=== PATIENT | female | born 1995 | race Caucasian/White ===

== ENCOUNTER 2017-01-31 21:03 | Emergency (ER) | payer BC ==
--- NOTE | 2017-01-31 21:36 | EDM.PDOC ---
ED HPI GENERAL MEDICAL PROBLEM - General Chief Complaint: Lower Extremity Injury/Pain Stated Complaint: ROLLED ANKLE Time Seen by Provider: 01/31/17 21:20 Source of Information: Reports: Patient History Limitations: Reports: No Limitations - History of Present Illness INITIAL COMMENTS - FREE TEXT/NARRATIVE: Patient is a 21-year-old female presents ED complaining of pain to the left foot. Patient states while running with her dogs in the yard rolled her ankle outward and felt a pop. Since then she's been having developed a walking. Pain is isolated to the lateral aspect of the foot. She has full range of motion of her ankle. No pain to her knee noted. She is able to ambulate with worsening pain. She did elevate the extremity and placed ice the affected area. She has not taken ibuprofen or Tylenol. No previous injury to the site noted. 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 Left Ankle Pain Score (Numeric/FACES): 7 - Related Data Allergies Allergy/AdvReac Type Severity Reaction Status Date / Time No Known Allergies Allergy Verified 01/31/17 21:13 Home Meds: Home Meds Montelukast [Singulair] 10 mg PO BEDTIME 01/31/17 [History] Norgestimate-Ethinyl Estradiol [Femynor 28 Tablet] 1 each PO DAILY 01/31/17 [ History] Past Medical History Respiratory History: Reports: Asthma Neurological History: Reports: Other (See Below) Other Neuro History: history of syncope - Past Surgical History HEENT Surgical History: Reports: Oral Surgery Social & Family History - Family History Family Medical History: Noncontributory - Tobacco Use Smoking Status *Q: Never Smoker - Caffeine Use Caffeine Use: Reports: Coffee - Recreational Drug Use Recreational Drug Use: No Review of Systems - Review of Systems Review Of Systems: ROS reveals no pertinent complaints other than HPI. ED EXAM, GENERAL - Physical Exam Exam: See Below Exam Limited By: No Limitations General Appearance: Alert, WD/WN, No Apparent Distress Ears: Hearing Grossly Normal Nose: Normal Inspection Throat/Mouth: Normal Voice, No Airway Compromise Neck: Normal Inspection, Supple Respiratory/Chest: No Respiratory Distress, No Accessory Muscle Use Cardiovascular: Normal Peripheral Pulses, Regular Rate, Rhythm Peripheral Pulses: 2+: Posterior Tibial (L), Dorsalis Pedis (L) Extremities: Normal Range of Motion (Of the left knee and ankle.), Other (On examination of the left foot patient has obvious swelling to the fifth and fourth metatarsal base. No swelling noted to the left ankle or lower leg. With palpation no pain to the proximal fibula, medial and lateral malleolus. No pain along the first second third metatarsal. Pain with palpation of the fourth and fifth metatarsal. No pain with palpation of the plantar aspect of the foot. No decrease in range of motion of the toes ankle.) Neurological: Alert, Oriented, CN II-XII Intact, Normal Cognition, No Motor/ Sensory Deficits Psychiatric: Normal Affect, Normal Mood Skin Exam: Warm, Dry, Intact, Normal Color Course - Vital Signs Last Recorded V/S: Last Vital Signs Temp 96.8 F 01/31/17 21:10 Pulse 81 01/31/17 21:10 Resp 18 01/31/17 21:10 BP 129/82 01/31/17 21:10 Pulse Ox 100 01/31/17 21:10 - Orders/Labs/Meds Orders: Active Orders 24 hr Category Date Time Status Foot Comp Min 3V Lt [CR] Stat Exams 01/31/17 21:28 Taken - Re-Assessments/Exams Free Text/Narrative Re-Assessment/Exam: Will obtain x-ray of the left foot. Patient refuses ibuprofen and Tylenol. X-ray of the foot reviewed. No acute bony abnormalities appreciated. Reviewed with Dr. Walker he agrees. Will have surgical shoe and Philip wrap applied. Patient refuses crutches. Discharge instructions as documented. Departure - Departure Time of Disposition: 22:08 Disposition: Home, Self-Care 01 Condition: Good Clinical Impression: Sprain of foot, left Qualifiers: Encounter type: initial encounter Qualified Code(s): S93.602A - Unspecified sprain of left foot, initial encounter - Discharge Information Instructions: Foot Sprain Referrals: Jeanette Campbell NP [Primary Care Provider] - Forms: ED Department Discharge Additional Instructions: As discussed elevate when able to reduce any swelling and pain. Apply ice to the affected area 4 times daily, 30 minutes in duration, do not place ice directly on the skin. Utilize Tylenol and ibuprofen in alternating fashion for pain. Refrain from any activities that cause worsening pain. If pain or swelling persist please follow up with PCP in the next 10-14 days. Return to the ED as needed for any new or worsening symptoms. - My Orders Last 24 Hours: My Active Orders 01/31/17 21:28 Foot Comp Min 3V Lt [CR] Stat - Assessment/Plan Last 24 Hours: My Active Orders 01/31/17 21:28 Foot Comp Min 3V Lt [CR] Stat
--- NOTE | 2017-02-01 06:57 | CR ---
Left foot: Three views of the left foot were obtained. Comparison: No previous study. Joint spaces are preserved. Small calcification is seen off the corner base of the distal phalanx of the first toe which is well-corticated and felt to be old and incidental. No acute fracture or other bony abnormality is appreciated. Impression: 1. Incidental finding. Nothing acute is appreciated on left foot study. Diagnostic code #2
== END 2017-01-31 22:23 | disposition home or self-care (01) ==
LOC: JD.ED 21:03
DX: S93.602A Unspecified sprain of left foot, initial encounter (principal); X50.1XXA Overexertion from prolonged static or awkward postures, initial encounter; Z79.899 Other long term (current) drug therapy; J45.909 Unspecified asthma, uncomplicated
CPT/HCPCS: 73630-26-LT; 73630-LT; 99283

== ENCOUNTER 2020-03-07 02:19 | Inpatient (IN) | payer BC ==
[2020-03-07] MEDS ORDERED: Ondansetron 4 MG/2 ML SDV IVPUSH PRN (03:40)
[2020-03-07] MEDS ORDERED: fentaNYL 100 MCG/2 ML SDV EPIDUR PRN (03:40)
[2020-03-07] MEDS ORDERED: ePHEDrine 50 MG/ML SDV IVPUSH PRN (03:40)
--- NOTE | 2020-03-07 03:46 | PCM.PREANE ---
Preanesthetic Assessment - Procedure Proposed Procedure: Epidural - Anesthesia/Transfusion/Family Hx Anesthesia History: Prior Anesthesia Without Reaction Family History of Anesthesia Reaction: No Transfusion History: No Prior Transfusion(s) Intubation History: Unknown - Review of Systems General: No Symptoms (frequent COVID testing due to work and all have been n egative.) Pulmonary: No Symptoms (Asthma: has not used albuterol inhaler in months/ induced by seasonal allergies and asthma) Cardiovascular: No Symptoms Gastrointestinal: No Symptoms Other: Reports: None, Sinus Problem - Physical Assessment NPO Status Date: 03/06/20 NPO Status Time: 21:00 Vital Signs: HR:76 B/P: 94/57 Sat: 99% Resp: 22 Temp: 98.3 Height: 1.65 m Weight: 96.615 kg ASA Class: 2 Mental Status: Alert & Oriented x3 Airway Class: Mallampati = 2 Dentition: Reports: Normal Dentition, Caries Thyro-Mental Finger Breadths: 3 Mouth Opening Finger Breadths: 3 ROM/Head Extension: Full Lungs: Clear to Auscultation, Normal Respiratory Effort Cardiovascular: Regular Rate, Regular Rhythm, No Murmurs - Lab Values: Awaiting lab results and Covid screen. - Allergies Allergies/Adverse Reactions: Allergies Allergy/AdvReac Type Severity Reaction Status Date / Time No Known Allergies Allergy Verified 01/31/17 21:13 - Anesthesia Plan Pre-Op Medication Ordered: None - Acknowledgements Anesthesia Type Planned: Epidural Pt an Appropriate Candidate for the Planned Anesthesia: Yes Alternatives and Risks of Anesthesia Discussed w Pt/Guardian: Yes Pt/Guardian Understands and Agrees with Anesthesia Plan: Yes PreAnesthesia Questionnaire Respiratory History: Reports: Asthma Neurological History: Reports: Other (See Below) Other Neuro History: history of syncope - Past Surgical History HEENT Surgical History: Reports: Oral Surgery - HOME MEDS Home Medications: Home Meds Montelukast [Singulair] 10 mg PO BEDTIME 01/31/17 [History] norgestimate-ethinyl estradioL [Femynor 28 Tablet] 1 each PO DAILY 01/31/17 [History]
[2020-03-07] MEDS ORDERED: Sodium Chloride 0.9% 10 ML Syringe FLUSH PRN (04:00)
[2020-03-07] MEDS ORDERED: Acetaminophen 325 MG Tab PO PRN (04:00)
[2020-03-07] MEDS ORDERED: Oxytocin/Lactated Ringers 10 UNIT/1,000 ML BAG IV SCH ×2 (04:00)
[2020-03-07] MEDS ORDERED: Nalbuphine 10 MG/1 ML Vial IVPUSH PRN (04:00)
[2020-03-07] MEDS ORDERED: Ampicillin 2 GM in Sodium Chloride 0.9% 100 ML IV ONE (04:00)
[2020-03-07] MEDS: Bupivacaine/fentaNYL/NS 100 ML Bag EPIDUR SCH ×2 (04:42→12:25)
[2020-03-07] MEDS: Lactated Ringers 1,000 ML IV SCH ×3 (04:46→10:03)
--- NOTE | 2020-03-07 07:45 | PCM.LDHP ---
L&D History of Present Illness - General Date of Service: 03/07/20 Admit Problem/Dx: Patient Status Order with Admit Dx/Problem 03/07/20 04:01 Patient Status [ADT] Routine Admission Diagnosis/Problem Admission Diagnosis/Problem 03/07/20 07:33 Fariha is a 24-year-old 1 para 0 white female who was admitted on the a.m. of 03/07/2020 at 39-3/7 weeks gestational age with an RONI of 03/11/2020 in active labor with change in cervix. Source of Information: Patient History Limitations: Reports: No Limitations - History of Present Illness Introduction:: Fariha is a 24-year-old 1 para 0 white female who was admitted on the a.m. of 03/07/2020 at 39-3/7 weeks gestational age with an RONI of 03/11/2020 in active labor with change in cervix. She is now 3+ centimeters, 90% effaced, -2, anterior, very soft. AROM has been performed and has resulted in clear amniotic fluid. heart tones are reassuring. Patient has received an epidural and is comfortable with epidural analgesia. 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 RONI 03/11/2020 was determined by a 6-0/7-week ultrasound done on 08/24/2019 and supported by 2 other ultrasounds done on 08/23/2019 and 10/26/2019. Patient is had normal onset of menses at age 12. Cycles q. 28 to 30 days and regular. Positive hCG on 07/01/2019 last menstrual period was 05/30/2019 which she reports to be fairly definite. Patient has had normal Pap smears. She denies any STIs in the past. course: Patient's first visit was at 6 weeks and 0 days with transvaginal ultrasound confirming a viable, garcia, intrauterine and supporting an RONI of 03/11/2020. She was seen on a regular basis throughout the . Her vital signs remained stable throughout the . She was a centering patient. Her weight increased from 166 up to 210 pounds for a 44 pound increase. Fundal height growth was appropriate for dates. She had her flu vaccination on 01/22/2020. She is group B strep positive based on urine culture done at the beginning of the . Tdap was given on 12/17/2019. She plans to breast-feed. She declined genetic testing. She did have exposure to COVID-19 but did not have any symptoms nor did she test positive. [place] depression screen score on 10/30/2019 was 2/30. Her immunization record includes flu shot on 01/22/2020, Tdap on 12/17/2019. She is rubella immune. Hepatitis B series was given in 1995. Meningococcal immunization was given in October 2012. Her last Td was February 10, 2016. Laboratory testing in shows her blood to be a positive with a negative antibody screen. First hemoglobin was 14.2 g/dL and platelets were 285,000 at that time. She is rubella immune. RPR is nonreactive. Urine culture showed group B strep. Hepatitis B surface antigen and HIV assays were both negative as were her chlamydia and gonorrhea tests. Second trimester labs showed a hemoglobin of 12.4 g/dL and platelets at 217,000. Her 1 hour glucose was 84. RPR done on 12/17/2019 was negative. Covid test on 09/26/2019 was negative. Group B strep her urine was positive but not read done in third trimester. Allergies: Seasonal allergies and cat dander. Medications: 1. Montelukast sodium 10 mg p.o. daily every night at bedtime 2. Ventolin HFA 108 mcg per action inhaler-used every 4-6 hours as needed 2. Probiotic caps 3. vitamins 4. Claritin 10 mg p.o. daily as needed for allergies 5. Calcium 600 mg p.o. daily 6. Docusate sodium 100 mg caps p.o. as needed for constipation. Past medical history: 1. Asthma which is seasonal allergy related 2. Mildly abnormal Pap smear with ASCUS changes 2018. HPV was negative and no dysplasia was noted. Past surgical history: 1. Oral surgery Family history: Paternal uncle with muscular dystrophy. Cystic fibrosis in his cousin on her dad's side a cousin with MS on paternal side. Mother is alive with high blood pressure and thyroid dysfunction. Father is alive and well. 2 brothers both alive and well. Maternal grandmother is at age 76 from colon cancer, diabetes complications and heart failure. Maternal grandfather is alive at age 85 but with dementia and history of heart surgery. Paternal grandmother is secondary to stomach cancer. Had a history of smoking. Paternal grandfather is secondary to esophageal cancer. History of smoking. No known family history of female cancers, bleeding or blood clotting disorder, anesthesia related problems or related issues. Social history: Patient is . is Isaak. 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 They live in [place], [place]. She does not use any significant amounts of alcohol, drugs or tobacco. Review of systems: Patient is reporting contractions on every 2 to 5-minute basis upon admission. Moderate in intensity and uncomfortable. Baby has been active. No loss of vaginal fluid, vaginal bleeding or increased mucus dischar ge. Skin: Negative Lungs: No infectious symptoms or shortness of breath Cardiovascular: No chest pain or exercise intolerance Breasts: No lumps, changes in size, pain, dimpling, discharge or axillary or supraclavicular concerns. GI: Negative : changes noted. Musculoskeletal: Negative Neurological: Negative Physical exam: In general the patient is well-developed, well-nourished, pleasant female of stated age in no acute distress. Clinic on 02/25/2020 her blood pressure was 118/70. Her fundal height was 38 cm. heart rate was 125. Her pregravid weight was 166. Height is 5 feet 5. Prepregnancy body mass index is 25.1. Skin is warm dry without lesions. HEENT, neck and back within normal limits. Lungs are clear with good breath sounds in all lung hanna. Cardiovascular exam shows regular and rhythm without murmurs. Breast exam done at first visit was unremarkable and is not repeated at this time. Abdomen is gravid with last fundal height at 38 cm. Baby in vertex presentation.. Genital per digital exam is as above. Patient is 3+ centimeters at this time. Extremities and neurological exam are grossly within normal limits. 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: Neurological History: Reports: Other (See Below) Other Neuro History: history of syncope - Infectious Disease History Infectious Disease History: Reports: None - Past Surgical History HEENT Surgical History: Reports: Oral Surgery Social & Family History - Family History Family Medical History: No Pertinent Family History - Caffeine Use Caffeine Use: Reports: Coffee H&P Review of Systems - Review of Systems: Review Of Systems: See Below L&D Exam - Exam Exam: See Below - Vital Signs Vital Signs: Last Vital Signs Temp Pulse Resp BP Pulse Ox 100 03/07/20 03:40 Weight: 96.615 kg - Patient Data Lab Results Last 24 hrs: Laboratory Results - last 24 hr 03/07/20 03/07/20 Range/Units 04:15 04:17 WBC 13.11 H (3.98-10.04) K/mm3 RBC 4.58 (3.98-5.22) M/mm3 Hgb 13.6 (11.2-15.7) gm/dl Hct 40.6 (34.1-44.9) % MCV 88.6 (79.4-94.8) fl MCH 29.7 (25.6-32.2) pg MCHC 33.5 (32.2-35.5) g/dl RDW Std Deviation 45.3 (36.4-46.3) fL Plt Count 223 (182-369) K/mm3 MPV 9.7 (9.4-12.3) fl SARS-CoV-2 RNA (HIGINIO) Negative (NEGATIVE) Result Diagrams: 03/07/20 04:17 Problem List Initiated/Reviewed/Updated: Yes Orders Last 24hrs: Active Orders 24 hr Category Date Time Status Patient Status [ADT] Routine ADT 03/07/20 04:01 Active Activity as Tolerated [RC] PFP Care 03/07/20 04:00 Active Communication Order [RC] ASDIRECTED Care 03/07/20 04:00 Active Heart Tones [RC] ASDIRECTED Care 03/07/20 04:01 Active Notify Provider [RC] ASDIRECTED Care 03/07/20 03:40 Active Notify Provider [RC] PFP Care 03/07/20 04:00 Active Notify Provider [RC] PRN Care 03/07/20 04:00 Active Oxygen Therapy [RC] ASDIRECTED Care 03/07/20 03:40 Active Peripheral IV Care [RC] . DIRECTED Care 03/07/20 04:01 Active Pulse Oximetry [RC] ASDIRECTED Care 03/07/20 03:40 Active Vital Signs [RC] PER UNIT ROUTINE Care 03/07/20 02:38 Active Vital Signs [RC] PER UNIT ROUTINE Care 03/07/20 04:00 Active Regular Diet [DIET] Diet 03/07/20 Breakfast Active RAPID PLASMA REAGIN,RPR [CHEM] Routine Lab 03/07/20 04:17 Received Acetaminophen [TylenoL] Med 03/07/20 04:00 Active 650 mg PO Q4H PRN Ampicillin 1 gm Med 03/07/20 08:00 Active Sodium Chloride 0.9% [Normal Saline] 100 ml IV Q4H Bupivacaine/fentaNYL/NS [fentaNYL/Bupivacaine/NS 2 MCG- Med 03/07/20 03:45 Act david 0.125% 100 ML] 100 ml EPIDUR ASDIRECTED Lactated Ringers [Ringers, Lactated] 1,000 ml Med 03/07/20 04:00 Active IV ASDIRECTED Nalbuphine [Nubain] Med 03/07/20 04:00 Active 10 mg IVPUSH Q2H PRN Ondansetron [Zofran] Med 03/07/20 03:40 Active 4 mg IVPUSH ONETIME PRN Oxytocin/Lactated Ringers [Pitocin in LR 10 Units/1,000 Med 03/07/20 04:00 Active ML] 10 unit in 1,000 ml IV .CONTINUOUS Oxytocin/Lactated Ringers [Pitocin in LR 10 Units/1,000 Med 03/07/20 04:00 Active ML] 10 unit in 1,000 ml IV TITRATE Sodium Chloride 0.9% [Saline Flush] Med 03/07/20 04:00 Active 10 ml FLUSH ASDIRECTED PRN ePHEDrine [ePHEDrine sulfate] Med 03/07/20 03:40 Active 5 mg IVPUSH ASDIRECTED PRN fentaNYL [Sublimaze] Med 03/07/20 03:40 Active 100 mcg EPIDUR Q3H PRN Electronic Heart Tones Ext w TOCO [WOMSER] Oth 03/07/20 04:00 Ordered Routine Electronic Heart Tones Internal [WOMSER] Per Unit Oth 03/07/20 04:00 Ordered Routine Peripheral IV Insertion Adult [OM.PC] Routine Oth 03/07/20 04:00 Ordered Resuscitation Status Routine Resus Stat 03/07/20 02:36 Ordered Medication Orders Acetaminophen (Tylenol) 650 mg PO Q4H PRN PRN Reason: Pain (Mild 1-3) and fever Ephedrine Sulfate (Ephedrine Sulfate) 5 mg IVPUSH ASDIRECTED PRN PRN Reason: Hypotension Fentanyl (Sublimaze) 100 mcg EPIDUR Q3H PRN PRN Reason: Pain Last Admin: 03/07/20 04:41 Dose: 100 mcg Documented by: BARTOLO Fentanyl/Bupivacaine HCl (Fentanyl/Bupivacaine/Ns 2 Mcg-0.125% 100 Ml) 100 ml EPIDUR ASDIRECTED ANKIT Last Admin: 03/07/20 04:42 Dose: 100 ml Documented by: BARTOLO Lactated Ringer's (Ringers, Lactated) 1,000 mls @ 100 mls/hr IV ASDIRECTED ANKIT Last Admin: 03/07/20 05:15 Dose: 100 mls/hr Documented by: Infusion: 03/07/20 05:15 Dose: 100 mls/hr Documented by: Admin: 03/07/20 04:46 Dose: 100 mls/hr Documented by: BARTOLO Ampicillin Sodium 1 gm/ Sodium (Chloride) 100 mls @ 200 mls/hr IV Q4H ANKIT Oxytocin/Lactated Ringer's (Pitocin In Lr 10 Units/1,000 Ml) 10 unit in 1,000 mls @ 12 mls/hr IV TITRATE ANKIT; Protocol Oxytocin/Lactated Ringer's (Pitocin In Lr 10 Units/1,000 Ml) 10 unit in 1,000 mls @ 500 mls/hr IV .CONTINUOUS ANKIT Nalbuphine HCl (Nubain) 10 mg IVPUSH Q2H PRN PRN Reason: Pain Ondansetron HCl (Zofran) 4 mg IVPUSH ONETIME PRN PRN Reason: Nausea/Vomiting Sodium Chloride (Saline Flush) 10 ml FLUSH ASDIRECTED PRN PRN Reason: Keep Vein Open Assessment/Plan Comment:: 1. 39-3/7-week intrauterine in a 1 para 0 with an RONI of 11/24/2020active laborcervical changereassuring heart tones. 2. Group B strep screen done. Prophylactic ampicillin per protocol started. 3. Patient plans to breast-feed. 4. Epidural placed and working well 5. Covid negative. 6. Patient is rubella immune. She has received her Tdap and influenza immunizations during this . Plan: 1. Anticipate normal spontaneous vaginal delivery 2. Group B strep prophylaxis per protocol 3. RPR and CBC have been done along with Covid testing. All are essentially normal. 4. Support breast-feeding decision. 5. Routine labor care.
[2020-03-07] MEDS: Ampicillin 1 GM in Sodium Chloride 0.9% 100 ML IV SCH ×3 (08:40→16:35)
[2020-03-07] MEDS ORDERED: Bupivacaine 0.25% 10 ML SDV ONE (12:00)
--- NOTE | 2020-03-07 17:59 | PCM.SN.2 ---
- Free Text/Narrative Note: Delivery note: Fariha is a 24-year-old 1 para 0 white female who was admitted on the a.m. of 03/07/2020 at 39-3/7 weeks gestational age with an RONI of 03/11/2020 in active labor with change in cervix. Started early in the a.m. on 03/07/2020. Patient was evaluated and found to be bette every 2 to 4 minutes upon admission. Moderate in intensity and very uncomfortable for the patient. She had intact membranes. heart tones were reassuring. Patient underwent artificial rupture of membranes to augment labor. She progressed steadily to complete cervical dilation. She had an epidural in place for labor analgesia. At 1852 hrs. on 03/07/2020 after approximately an hour and a half of pushing patient delivered a viable thousand 400 g (7 pounds 8 ounce) female infant named Delmis Guerrero in a direct occiput anterior position. The baby was placed on mom's abdomen and dried with warm blanket. Nose and mouth were bulb suctioned. The Pitocin started and increased to 500 cc an hour to facilitate increase in uterine tone and decrease likelihood of bleeding. Umbilical cord was allowed to pulsate for approximately 3 minutes, was clamped x2 and then cut by the patient herself. The umbilical cord had 3 vessels. Cord blood was obtained. A second-degree perineal laceration was noted. It was repaired in a routine fashion with 3-0 Monocryl suture using labor epidural analgesia for perineal laceration repair anesthesia. Patient tolerated this well. The placenta delivered in a [place] presentation at 1701 hrs. It appeared intact and complete and was discarded per patient desire. The patient plans to breast-feed. Estimated blood loss was 200 cc. Condition: Good.
[2020-03-07] MEDS ORDERED: Benzocaine/Menthol 20%-0.5% Spray 56 GM Canister TOP PRN (18:29)
[2020-03-07] MEDS ORDERED: Witch Hazel Medicated Pads 40/Jar TOP PRN (18:29)
[2020-03-07] MEDS: Ibuprofen 600 MG Tab PO PRN (19:45)
[2020-03-08] MEDS: Ibuprofen 600 MG Tab PO PRN ×5 (00:22→20:54)
[2020-03-08] MEDS: Docusate Sodium 100 MG Cap PO PRN ×2 (07:39→20:54)
[2020-03-08] MEDS: Prenatal Multivitamin with Calcium/Folic Acid/Iron Tab PO SCH (09:00)
--- NOTE | 2020-03-08 09:38 | PCM.SN.2 ---
- Free Text/Narrative Note: day 1 No heavy vaginal bleeding no cramping uterus involuting normally patient will probably go home tomorrow.
[2020-03-08] MEDS: Acetaminophen 325 MG Tab PO PRN ×2 (17:15→23:54)
--- NOTE | 2020-03-09 04:38 | PCM48HPAN ---
Post Anesthesia Note - EVALUATION WITHIN 48HRS OF ANESTHETIC Vital Signs in Normal Range: Yes Patient Participated in Evaluation: Yes Respiratory Function Stable: Yes Airway Patent: Yes Cardiovascular Function Stable: Yes Hydration Status Stable: Yes Pain Control Satisfactory: Yes Nausea and Vomiting Control Satisfactory: Yes Mental Status Recovered: Yes Vital Signs: Last Vital Signs Temp 37.0 C 03/08/20 15:00 Pulse 79 03/08/20 15:00 Resp 16 03/08/20 15:00 BP 116/71 03/08/20 15:00 Pulse Ox 99 03/08/20 15:00
--- NOTE | 2020-03-09 06:20 | PCM.DCSUM1 ---
Discharge Summary - Hospital Course Free Text/Narrative:: [facility] Provider Simple Note Patient Name: SEN SALAZAR Date of : [birth year] Patient Status: Inpatient Attending Provider: Shayne Pham Date: 03/07/20 17:55 Initialization Date: 03/07/20 17:55 - Free Text/Narrative Note: Delivery note: Sen is a 24-year-old 1 para 0 white female who was admitted on the a.m. of 03/07/2020 at 39-3/7 weeks gestational age with an RONI of 03/11/2020 in active labor with change in cervix. Started early in the a.m. on 03/07/2020. Patient was evaluated and found to be bette every 2 to 4 minutes upon admission. Moderate in intensity and very uncomfortable for the patient. She had intact membranes. heart tones were reassuring. Patient underwent artificial rupture of membranes to augment labor. She progressed steadily to complete cervical dilation. She had an epidural in place for labor analgesia. At 1852 hrs. on 03/07/2020 after approximately an hour and a half of pushing patient delivered a viable thousand 400 g (7 pounds 8 ounce) female named Delmis Guerrero in a direct occiput anterior position. The baby was placed on mom's abdomen and dried with warm blanket. Nose and mouth were bulb suctioned. The Pitocin started and increased to 500 cc an hour to facilitate increase in uterine tone and decrease likelihood of bleeding. Umbilical cord was allowed to pulsate for approximately 3 minutes, was clamped x2 and then cut by the patient herself. The umbilical cord had 3 vessels. Cord blood was obtained. A second-degree perineal laceration was noted. It was repaired in a routine fashion with 3-0 Monocryl suture using labor epidural analgesia for perineal laceration repair anesthesia. Patient tolerated this well. The placenta delivered in a Echols presentation at 1701 hrs. It appeared intact and complete and was discarded per patient desire. The patient plans to breast-feed. Estimated blood loss was 200 cc. Condition: Good. HPI Initial Comments: [facility] Provider Simple Note Patient Name: SEN SALAZAR Date of : [birth year] Patient Status: Inpatient Attending Provider: Shayne Pham F Date: 03/07/20 17:55 Initialization Date: 03/07/20 17:55 - Free Text/Narrative Note: Delivery note: Sen is a 24-year-old 1 para 0 white female who was admitted on the a.m. of 03/07/2020 at 39-3/7 weeks gestational age with an RONI of 03/11/2020 in active labor with change in cervix. Started early in the a.m. on 03/07/2020. Patient was evaluated and found to be bette every 2 to 4 minutes upon admission. Moderate in intensity and very uncomfortable for the patient. She had intact membranes. heart tones were reassuring. Patient underwent artificial rupture of membranes to augment labor. She progressed steadily to complete cervical dilation. She had an epidural in place for labor analgesia. At 1852 hrs. on 03/07/2020 after approximately an hour and a half of pushing patient delivered a viable thousand 400 g (7 pounds 8 ounce) female named Delmis Guerrero in a direct occiput anterior position. The baby was placed on mom's abdomen and dried with warm blanket. Nose and mouth were bulb suctioned. The Pitocin started and increased to 500 cc an hour to facilitate increase in uterine tone and decrease likelihood of bleeding. Umbilical cord was allowed to pulsate for approximately 3 minutes, was clamped x2 and then cut by the patient herself. The umbilical cord had 3 vessels. Cord blood was obtained. A second-degree perineal laceration was noted. It was repaired in a routine fashion with 3-0 Monocryl suture using labor epidural analgesia for perineal laceration repair anesthesia. Patient tolerated this well. The placenta delivered in a Echols presentation at 1701 hrs. It appeared intact and complete and was discarded per patient desire. The patient plans to breast-feed. Estimated blood loss was 200 cc. Condition: Good. Brief History: [facility] . Provider Simple Note. Patient Name: SEN SALAZAR [facility] Record Number: [id number]. Date of : [birth year]Patient Status: Inpatient. Attending Provider: Shayne Pham FAccount Number: [id number]. Date: 03/07/20 17:55Initialization Date: 03/07/20 17:55. - Free Text/Narrative. Note: Delivery note: Sen is a 24-year-old 1 para 0 white female who was admitted on the a.m. of 03/07/2020 at 39-3/7 weeks gestational age with an RONI of 03/11/2020 in active labor with change in cervix. Started early in the a.m. on 03/07/2020. Patient was evaluated and found to be bette every 2 to 4 minutes upon admission. Moderate in intensity and very uncomfortable for the patient. She had intact membranes. heart tones were reassuring. Patient underwent artificial rupture of membranes to augment labor. She progressed steadily to complete cervical dilation. She had an epidural in place for labor analgesia. At 1852 hrs. on 03/07/2020 after approximately an hour and a half of pushing patient delivered a viable thousand 400 g (7 pounds 8 ounce) female infant named Delmis Guerrero in a direct occiput anterior position. The baby was placed on mom's abdomen and dried with warm blanket. Nose and mouth were bulb suctioned. The Pitocin started and increased to 500 cc an hour to facilitate increase in uterine tone and decrease likelihood of bleeding. Umbilical cord was allowed to pulsate for approximately 3 minutes, was clamped x2 and then cut by the patient herself. The umbilical cord had 3 vessels. Cord blood was obtained. A second-degree perineal laceration was noted. It was repaired in a routine fashion with 3-0 Monocryl suture using labor epidural analgesia for perineal laceration repair anesthesia. Patient tolerated this well. The placenta delivered in a Echols presentation at 1701 hrs. It appeared intact and complete and was discarded per patient desire. The patient plans to breast-feed. Estimated blood loss was 200 cc. Condition: Good. Diagnosis: Stroke: No - Discharge Data Discharge Date: 03/09/20 Discharge Disposition: Home, Self-Care 01 Condition: Good - Referral to Home Health Primary Care Physician: Shayne Pham MD - Discharge Diagnosis/Problem(s) (1) Second degree perineal laceration, delivered, current hospitalization SNOMED Code(s): 418941391, 954341696 ICD Code: O70.1 - SECOND DEGREE PERINEAL LACERATION DURING DELIVERY Status: Acute Current Visit: Yes (2) 39 weeks gestation of SNOMED Code(s): 10756158 ICD Code: Z3A.39 - 39 WEEKS GESTATION OF Status: Acute Current Visit: Yes - Patient Summary/Data Complications: none Consults: none Hospital Course: uneventful - Patient Instructions Diet: Usual Diet as Tolerated Driving: Do Not Drive (x2 days) Showering/Bathing: May Shower Notify Provider of: Fever, Increased Pain, Swelling and Redness, Drainage, Nausea and/or Vomiting - Discharge Plan *PRESCRIPTION DRUG MONITORING PROGRAM REVIEWED*: Not Applicable *COPY OF PRESCRIPTION DRUG MONITORING REPORT IN PATIENT LILY: Not Applicable Home Medications: Home Meds Calcium Carbonate [Calcium] 600 mg PO DAILY 03/07/20 [History] Docusate Sodium [Colace] 100 mg PO DAILY 03/07/20 [History] Pnv No.95/Ferrous Fum/Folic AC [ Caplet] 1 tab PO DAILY 03/07/20 [History] Benzocaine/Menthol [Dermoplast Pain Relief [place]] 1 spray TOP ASDIRECTED PRN canister 03/09/20 [Rx] Docusate Sodium [Colace] 100 mg PO BID PRN cap 03/09/20 [Rx] Ibuprofen [Motrin] 600 mg PO Q6H PRN tablet 03/09/20 [Rx] witch Ju [Tucks] 1 pad TOP ASDIRECTED PRN pad 03/09/20 [Rx] - Discharge Summary/Plan Comment DC Time >30 min.: No - Patient Data Vitals - Most Recent: Last Vital Signs Temp 98.6 F 03/08/20 15:00 Pulse 79 03/08/20 15:00 Resp 16 03/08/20 15:00 BP 116/71 03/08/20 15:00 Pulse Ox 99 03/08/20 15:00 Weight - Most Recent: 213 lb I&O - Last 24 hours: Intake & Output 03/08/20 03/08/20 03/09/20 14:59 22:59 06:59 Intake Total 120 240 Balance 120 240 Med Orders - Current: Current Medications Acetaminophen (Tylenol) 650 mg PO Q4H PRN PRN Reason: mild pain or fever Last Admin: 03/08/20 23:54 Dose: 650 mg Documented by: Benzocaine/Menthol (Dermoplast Pain Relief [place]) 0 gm TOP ASDIRECTED PRN PRN Reason: Perineal Comfort Measure Docusate Sodium (Colace) 100 mg PO BID PRN PRN Reason: Constipation Last Admin: 03/08/20 20:54 Dose: 100 mg Documented by: Ibuprofen (Motrin) 600 mg PO Q4H PRN PRN Reason: Mild pain or fever Last Admin: 03/08/20 20:54 Dose: 600 mg Documented by: Prenat Multivit/Obion/Iron/Folic Ac ( Plus Iron) 1 each PO DAILY [facility] Last Admin: 03/08/20 09:00 Dose: 1 each [facility] TOP ASDIRECTED PRN PRN Reason: Perineal Comfort Measure Discontinued Medications Acetaminophen (Tylenol) 650 mg PO Q4H PRN PRN Reason: Pain (Mild 1-3) and fever Bupivacaine HCl (Sensorcaine-Mpf 0.25%) 10 ml .ROUTE .STK-MED ONE Stop: 03/07/20 12:01 Ephedrine Sulfate (Ephedrine Sulfate) 5 mg IVPUSH ASDIRECTED PRN PRN Reason: Hypotension Fentanyl (Sublimaze) 100 mcg EPIDUR Q3H PRN PRN Reason: Pain Last Admin: 03/07/20 04:41 Dose: 100 mcg Documented by: Fentanyl/Bupivacaine HCl (Fentanyl/Bupivacaine/Ns 2 Mcg-0.125% 100 Ml) 100 ml EPIDUR ASDIRECTED [facility] Last Admin: 03/07/20 12:25 Dose: 100 ml Documented by: Lactated Ringer's (Ringers, Lactated) 1,000 mls @ 100 mls/hr IV ASDIRECTED [facility] Last Admin: 03/07/20 10:03 Dose: 100 mls/hr Documented by: Ampicillin Sodium 2 gm/ Sodium (Chloride) 100 mls @ 200 mls/hr IV ONETIME ONE Stop: 03/07/20 04:29 Last Admin: 03/07/20 04:27 Dose: 200 mls/hr Documented by: Ampicillin Sodium 1 gm/ Sodium (Chloride) 100 mls @ 200 mls/hr IV Q4H [facility] Last Admin: 03/07/20 16:35 Dose: 200 mls/hr Documented by: Oxytocin/Lactated Ringer's (Pitocin In Lr 10 Units/1,000 Ml) 10 unit in 1,000 mls @ 12 mls/hr IV TITRATE [facility]; Protocol Last Titration: 03/07/20 16:55 Dose: 83.33 munits/min, 500 mls/hr Documented by: Oxytocin/Lactated Ringer's (Pitocin In Lr 10 Units/1,000 Ml) 10 unit in 1,000 mls @ 500 mls/hr IV .CONTINUOUS ANKIT Miscellaneous Medication (Phenylephrine 1 Mg/10 Ml-Ns) 0 mg IVPUSH ONETIME ONE Stop: 03/07/20 03:41 Last Admin: 03/07/20 07:41 Dose: Not Given Documented by: Nalbuphine HCl (Nubain) 10 mg IVPUSH Q2H PRN PRN Reason: Pain Ondansetron HCl (Zofran) 4 mg IVPUSH ONETIME PRN PRN Reason: Nausea/Vomiting Sodium Chloride (Saline Flush) 10 ml FLUSH ASDIRECTED PRN PRN Reason: Keep Vein Open
[2020-03-09] MEDS: Ibuprofen 600 MG Tab PO PRN (06:57)
[2020-03-09] MEDS: Docusate Sodium 100 MG Cap PO PRN (07:57)
[2020-03-09] MEDS: Prenatal Multivitamin with Calcium/Folic Acid/Iron Tab PO SCH ×2 (07:58→12:20)
== END 2020-03-09 11:15 | disposition home or self-care (01) | DRG 560 ==
LOC: JD.OBCHECK 02:19 → JD.OB 02:26 → JD.OBCHECK 04:00 → JD.OB 04:00 → OBSVTOIN 16:52 → JD.OB 16:53
PROVIDERS: ADMIT Obstetrics & Gynecology; ATTEND Obstetrics & Gynecology
PROC: 10E0XZZ Delivery of Products of Conception, External Approach (ICD-10-PCS; principal; 2020-03-07)
PROC: 10907ZC Drainage of Amniotic Fluid, Therapeutic from Products of Conception, Via Natural or Artificial Opening (ICD-10-PCS; 2020-03-07)
PROC: 0KQM0ZZ Repair Perineum Muscle, Open Approach (ICD-10-PCS; 2020-03-07)
PROC: 3E0R3BZ Introduction of Anesthetic Agent into Spinal Canal, Percutaneous Approach (ICD-10-PCS; 2020-03-07)
PROC: 00HU33Z Insertion of Infusion Device into Spinal Canal, Percutaneous Approach (ICD-10-PCS; 2020-03-07)
DX: O70.1 Second degree perineal laceration during delivery (principal); Z37.0 Single live birth; Z3A.39 39 weeks gestation of pregnancy; Z20.828 Contact with and (suspected) exposure to other viral communicable diseases
CPT/HCPCS: 36415; 51702; 59025; 59409; 85027; 86592; A9270-GY; J0290; J2590; J3010; J3490; J7050; J7120; U0002

== ENCOUNTER 2022-03-24 05:37 | Emergency (ER) | payer BC ==
[2022-03-24] MEDS ORDERED: Amoxicillin 500 MG Cap PO ONE (06:03)
[2022-03-24] MEDS ORDERED: Acetaminophen/HYDROcodone 325-5 MG Tab PO ONE (06:04)
== END 2022-03-24 06:30 | disposition home or self-care (01) ==
LOC: JD.ED 05:37
DX: O99.891 Other specified diseases and conditions complicating pregnancy (principal); H66.91 Otitis media, unspecified, right ear; O99.513 Diseases of the respiratory system complicating pregnancy, third trimester; J45.909 Unspecified asthma, uncomplicated; Z79.899 Other long term (current) drug therapy; Z3A.36 36 weeks gestation of pregnancy
CPT/HCPCS: 87651; 99282; A9270

== ENCOUNTER 2022-04-07 15:27 | Inpatient (IN) | payer BC ==
[2022-04-07] MEDS ORDERED: Calcium Carbonate 500 MG Tab.Chew PO PRN (15:56)
[2022-04-07] MEDS ORDERED: Ondansetron 4 MG/2 ML SDV IVPUSH PRN (15:56)
[2022-04-07] MEDS ORDERED: Sodium Chloride 0.9% 10 ML Syringe FLUSH PRN (15:56)
[2022-04-07] MEDS ORDERED: Lidocaine 1% 50 ML MDV INJECT ONE (15:56)
[2022-04-07] MEDS ORDERED: Ampicillin 2 GM in Sodium Chloride 0.9% 100 ML IV ONE (15:56)
[2022-04-07] MEDS ORDERED: Nalbuphine 10 MG/0.5 ML Syringe IVPUSH PRN (15:56)
[2022-04-07] MEDS ORDERED: Oxytocin/Lactated Ringers 10 UNIT/1,000 ML BAG IV SCH ×2 (16:00)
[2022-04-07] MEDS: Lactated Ringers 1,000 ML IV SCH ×3 (16:31→22:33)
[2022-04-07] MEDS ORDERED: fentaNYL 100 MCG/2 ML SDV EPIDUR PRN (17:42)
[2022-04-07] MEDS ORDERED: ePHEDrine 50 MG/ML SDV IVPUSH PRN (17:42)
[2022-04-07] MEDS ORDERED: diphenhydrAMINE 50 MG/ML SDV IVPUSH PRN (17:42)
[2022-04-07] MEDS ORDERED: Bupivacaine/fentaNYL/NS 100 ML Bag EPIDUR PRN (17:42)
[2022-04-07] MEDS: Ampicillin 1 GM in Sodium Chloride 0.9% 100 ML IV SCH (19:54)
[2022-04-08] MEDS: Ampicillin 1 GM in Sodium Chloride 0.9% 100 ML IV SCH ×2 (00:03→04:01)
[2022-04-08] MEDS ORDERED: Docusate Sodium 100 MG Cap PO PRN (04:36)
[2022-04-08] MEDS ORDERED: Benzocaine/Menthol 20%-0.5% Spray 78 GM Cannister TOP PRN (04:36)
[2022-04-08] MEDS ORDERED: Acetaminophen 325 MG Tab PO PRN (04:36)
[2022-04-08] MEDS: Witch Hazel Medicated Pads 40/Jar TOP PRN (05:29)
[2022-04-08] MEDS: Ibuprofen 600 MG Tab PO PRN ×3 (05:30→21:01)
[2022-04-08] MEDS ORDERED: Prenatal Multivitamin with Calcium/Folic Acid/Iron Tab PO SCH (09:00)
[2022-04-09] MEDS: Ibuprofen 600 MG Tab PO PRN (04:28)
[2022-04-09] MEDS: Witch Hazel Medicated Pads 40/Jar TOP PRN (09:35)
== END 2022-04-09 10:40 | disposition home or self-care (01) | DRG 560 ==
LOC: JD.OBCHECK 15:27 → JD.OB 15:28 → JD.OBCHECK 15:56 → JD.OB 15:56 → OBSVTOIN 04-08 04:12 → JD.OB 04-08 04:13
PROVIDERS: ADMIT Obstetrics & Gynecology; ATTEND Obstetrics & Gynecology
PROC: 10E0XZZ Delivery of Products of Conception, External Approach (ICD-10-PCS; principal; 2022-04-08)
PROC: 10907ZC Drainage of Amniotic Fluid, Therapeutic from Products of Conception, Via Natural or Artificial Opening (ICD-10-PCS; 2022-04-08)
PROC: 0KQM0ZZ Repair Perineum Muscle, Open Approach (ICD-10-PCS; 2022-04-08)
PROC: 3E0R3BZ Introduction of Anesthetic Agent into Spinal Canal, Percutaneous Approach (ICD-10-PCS; 2022-04-08)
PROC: 00HU33Z Insertion of Infusion Device into Spinal Canal, Percutaneous Approach (ICD-10-PCS; 2022-04-08)
DX: O99.824 Streptococcus B carrier state complicating childbirth (principal); O77.0 Labor and delivery complicated by meconium in amniotic fluid; Z3A.38 38 weeks gestation of pregnancy; Z37.0 Single live birth; O70.1 Second degree perineal laceration during delivery; O99.344 Other mental disorders complicating childbirth; F41.9 Anxiety disorder, unspecified; F32.A Depression, unspecified; O99.52 Diseases of the respiratory system complicating childbirth; J45.909 Unspecified asthma, uncomplicated; O99.02 Anemia complicating childbirth; D64.9 Anemia, unspecified
CPT/HCPCS: 01967; 36415; 51702; 59020; 59409; 85027; 86592; 86850; 86900; 86901; A9270-GY; J0290; J2590; J3010; J7120

== ENCOUNTER 2023-06-06 10:29 | Emergency (ER) | payer BC ==
[2023-06-06] MEDS ORDERED: Sodium Chloride 0.9% 10 ML Syringe FLUSH PRN (10:46)
[2023-06-06] MEDS: Albuterol/Ipratropium 3.0-0.5 MG/3 ML Neb Soln NEB ONE ×2 (10:53→12:15)
[2023-06-06] MEDS: cefTRIAXone 1 GM in Sodium Chloride 0.9% 100 ML IV ONE (11:10)
[2023-06-06] MEDS: Sodium Chloride 0.9% 2,000 ML IV ONE (11:11)
[2023-06-06] MEDS: SODIUM CHLORIDE 0.9% IV ONE (11:13)
[2023-06-06 11:23] LABS: HEMATOCRIT 37.9 % (37.0-47.0); MEAN CORPUSCULAR HEMOGLOBIN 28.1 pg (28.0-32.0); MEAN CORPUSCULAR HGB CONC 34.3 g/dl (32.0-36.0); MEAN PLATELET VOLUME 8.9 fl (9.4-12.3); PLATELET COUNT,PLT 260 K/mm3 (150-400); RED BLOOD CELL COUNT 4.62 M/mm3 (4.10-5.30); WHITE BLOOD CELL COUNT,WBC 13.36 K/mm3 (3.9-11.3)
[2023-06-06 11:34] LABS: APPEARANCE,URINE CLEAR (Clear); BILIRUBIN,URINE NEGATIVE (Negative); COLOR,URINE YELLOW (Yellow); GLUCOSE,URINE NEGATIVE (Negative); KETONES,URINE TRACE (Negative); LEUKOCYTE ESTERASE,URINE NEGATIVE (Negative); NITRITE,URINE NEGATIVE (Negative); OCCULT BLOOD,URINE NEGATIVE (Negative); PROTEIN,URINE 2+ (Negative); UROBILINOGEN,URINE 0.2 (0.2-1.0)
[2023-06-06 11:36] LABS: INR 0.98; PROTHROMBIN TIME 10.5 SECONDS (9.7-12.0)
[2023-06-06 11:44] LABS: LACTIC ACID 1.6 mmol/L (0.4-2.0)
[2023-06-06 11:55] LABS: A/G RATIO 0.7 (1-2); ALBUMIN 3.5 g/dl (3.4-5.0); ANION GAP 21.3 (5-15); BILIRUBIN TOTAL 0.3 mg/dL (0.2-1.0); CALCIUM 9.4 mg/dL (8.5-10.1); EST CRCL DRUG DOSING (CG) 75.37 mL/min; POTASSIUM,K 3.3 mEq/L (3.5-5.1); PROTEIN TOTAL,TP 8.2 g/dl (6.4-8.2)
[2023-06-06 12:00] LABS: BACTERIA,URINE FEW /hpf (FEW); MUCUS,URINE NOT SEEN /hpf (FEW); RBC,URINE 0-5 /hpf (0-5); WBC,URINE 0-5 /hpf (0-5)
[2023-06-06 13:02] LABS: BAND PERCENT MAN 17 % (0-10); BASOPHILS PERCENT MAN 1 (0.1-1.2); EOSINOPHILS PERCENT MAN 0 % (0.7-5.8); LYMPHOCYTES % ATYPICAL MANUAL 0 %; LYMPHOCYTES PERCENT MAN 5 % (20-40); MONOCYTES PERCENT MAN 4 % (2-10); PLATELET COUNT ESTIMATE ADEQUATE
[2023-06-06 16:09] LABS: CORONAVIRUS COVID-19 NAA NEGATIVE (NEGATIVE); INFLUENZA A NAA POSITIVE (NEGATIVE); RESPIRATORY SYNCYTIAL VIR NAA NEGATIVE (NEGATIVE)
[2023-06-06] MEDS: Sodium Chloride 0.9% 1,000 ML ONE (16:19)
== END 2023-06-06 17:04 | disposition home or self-care (01) ==
LOC: JD.ED 10:29
DX: J45.901 Unspecified asthma with (acute) exacerbation (principal); R65.10 Systemic inflammatory response syndrome (SIRS) of non-infectious origin without acute organ dysfunction; J20.1 Acute bronchitis due to Hemophilus influenzae; E86.0 Dehydration; Z79.899 Other long term (current) drug therapy
CPT/HCPCS: 0241U; 36415; 71046; 80053; 81001; 81025; 83605; 83690; 83880; 84484; 85007; 85027; 85610; 87040; 94640; 96365; 99285; J0696; J3490; J7030; J7620-GY

== ENCOUNTER 2023-07-27 08:55 | Emergency (ER) | payer BC ==
[2023-07-27] MEDS: Sodium Chloride 0.9% 10 ML Syringe FLUSH PRN (09:40)
[2023-07-27 09:54] LABS: BASOPHILS PERCENT AUTO 0.1 % (0.0-1.0); EOSINOPHILS PERCENT AUTO 0.1 % (0.0-6.0); HEMATOCRIT 42.9 % (37.0-47.0); HEMOGLOBIN 14.3 gm/dl (12.0-16.0); IMMATURE GRAN ABSOLUTE AUTO 0.03 K/mm3 (0.00-0.05); IMMATURE GRAN PERCENT AUTO 0.3 % (0.0-0.4); LYMPHOCYTES ABSOLUTE AUTO 1.3 K/mm3 (1.0-4.8); LYMPHOCYTES PERCENT AUTO 12.7 % (24.0-44.0); MEAN CORPUSCULAR HEMOGLOBIN 28.1 pg (28.0-32.0); MEAN CORPUSCULAR HGB CONC 33.3 g/dl (32.0-36.0); MEAN CORPUSCULAR VOLUME 84.4 fl (83.0-99.0); MEAN PLATELET VOLUME 8.5 fl (9.4-12.3); MONOCYTES ABSOLUTE AUTO 0.7 K/mm3 (0.0-0.8); MONOCYTES PERCENT AUTO 6.8 % (0.0-8.0); NEUTROPHILS ABSOLUTE AUTO 8.3 K/mm3 (1.8-7.7); PLATELET COUNT,PLT 346 K/mm3 (150-400); RED BLOOD CELL COUNT 5.08 M/mm3 (4.10-5.30); WHITE BLOOD CELL COUNT,WBC 10.36 K/mm3 (3.9-11.3)
[2023-07-27] MEDS: Ondansetron 4 MG/2 ML SDV IVPUSH ONE (10:00)
[2023-07-27 10:01] LABS: APPEARANCE,URINE CLEAR (Clear); BILIRUBIN,URINE NEGATIVE (Negative); COLOR,URINE YELLOW (Yellow); GLUCOSE,URINE NEGATIVE (Negative); KETONES,URINE NEGATIVE (Negative); LEUKOCYTE ESTERASE,URINE NEGATIVE (Negative); NITRITE,URINE NEGATIVE (Negative); OCCULT BLOOD,URINE NEGATIVE (Negative); PH,URINE 8.5 (5.0-8.0); PROTEIN,URINE 1+ (Negative)
[2023-07-27] MEDS: Sodium Chloride 0.9% 1,000 ML IV SCH (10:02)
[2023-07-27 10:31] LABS: ALBUMIN 3.9 g/dl (3.4-5.0); ANION GAP 11.9 (5-15); BILIRUBIN TOTAL 0.8 mg/dL (0.2-1.0); BUN/CREATININE RATIO 12.2 (14-18); CALCIUM 9.5 mg/dL (8.5-10.1); CREATININE 0.9 mg/dL (0.55-1.02); EST CRCL DRUG DOSING (CG) 83.74 mL/min; POTASSIUM,K 3.9 mEq/L (3.5-5.1); PROTEIN TOTAL,TP 7.9 g/dl (6.4-8.2)
[2023-07-27 10:36] LABS: BACTERIA,URINE FEW /hpf (FEW); MUCUS,URINE RARE /hpf (FEW); RBC,URINE 0-5 /hpf (0-5); WBC,URINE 0-5 /hpf (0-5)
[2023-07-27] MEDS: Morphine 4 MG/ML Syringe IVPUSH ONE (11:15)
== END 2023-07-27 13:20 | disposition home or self-care (01) ==
LOC: JD.ED 08:55
DX: R10.10 Upper abdominal pain, unspecified (principal); J45.909 Unspecified asthma, uncomplicated; Z79.899 Other long term (current) drug therapy; Z86.19 Personal history of other infectious and parasitic diseases
CPT/HCPCS: 36415; 74176; 80053; 81001; 83605; 83690; 84703; 85025; 96361; 96374; 96375; 99284; J2270; J2405; J3490; J7030

== ENCOUNTER 2023-08-30 00:22 | Emergency (ER) | payer BC ==
[2023-08-30] MEDS: Sodium Chloride 0.9% 1,000 ML IV ONE (01:13)
[2023-08-30] MEDS: Ondansetron 4 MG/2 ML SDV IVPUSH ONE (01:14)
[2023-08-30] MEDS: Aluminum Hydroxide/Magnesium Hydroxide/Simethicone Susp 30 ML Cup PO ONE (01:14)
[2023-08-30] MEDS: Famotidine 20 MG/2 ML SDV IVPUSH ONE (01:14)
[2023-08-30 01:15] LABS: BASOPHILS PERCENT AUTO 0.3 % (0.0-1.0); EOSINOPHILS ABSOLUTE AUTO 0.1 K/mm3 (0.0-0.4); EOSINOPHILS PERCENT AUTO 0.8 % (0.0-6.0); HEMATOCRIT 39.5 % (37.0-47.0); HEMOGLOBIN 13.4 gm/dl (12.0-16.0); IMMATURE GRAN ABSOLUTE AUTO 0.04 K/mm3 (0.00-0.05); IMMATURE GRAN PERCENT AUTO 0.3 % (0.0-0.4); LYMPHOCYTES ABSOLUTE AUTO 1.8 K/mm3 (1.0-4.8); LYMPHOCYTES PERCENT AUTO 13.2 % (24.0-44.0); MEAN CORPUSCULAR HEMOGLOBIN 28.3 pg (28.0-32.0); MEAN CORPUSCULAR HGB CONC 33.9 g/dl (32.0-36.0); MEAN CORPUSCULAR VOLUME 83.5 fl (83.0-99.0); MEAN PLATELET VOLUME 8.7 fl (9.4-12.3); MONOCYTES ABSOLUTE AUTO 0.8 K/mm3 (0.0-0.8); NEUTROPHILS ABSOLUTE AUTO 10.7 K/mm3 (1.8-7.7); NEUTROPHILS PERCENT AUTO 79.4 % (41.0-71.0); PLATELET COUNT,PLT 309 K/mm3 (150-400); RED BLOOD CELL COUNT 4.73 M/mm3 (4.10-5.30); WHITE BLOOD CELL COUNT,WBC 13.52 K/mm3 (3.9-11.3)
[2023-08-30 01:40] LABS: ALBUMIN 3.5 g/dl (3.4-5.0); ANION GAP 14.4 (5-15); BILIRUBIN TOTAL 0.6 mg/dL (0.2-1.0); CALCIUM 9.2 mg/dL (8.5-10.1); EST CRCL DRUG DOSING (CG) 75.37 mL/min; POTASSIUM,K 3.4 mEq/L (3.5-5.1); PROTEIN TOTAL,TP 7.1 g/dl (6.4-8.2)
[2023-08-30] MEDS: Metoclopramide 10 MG/2 ML SDV IVPUSH ONE (01:59)
== END 2023-08-30 02:45 | disposition home or self-care (01) ==
LOC: JD.ED 00:22
DX: R10.13 Epigastric pain (principal); Z79.899 Other long term (current) drug therapy
CPT/HCPCS: 36415; 80053; 83690; 84703; 85025; 96361; 96374; 96375; 99284; A9270; J2765; J3490; J7030

== ENCOUNTER 2023-11-29 14:13 | Emergency (ER) | payer BC ==
[2023-11-29] MEDS: Albuterol/Ipratropium 3.0-0.5 MG/3 ML Neb Soln NEB ONE (14:51)
[2023-11-29 15:27] LABS: BASOPHILS PERCENT AUTO 0.3 % (0.0-1.0); EOSINOPHILS ABSOLUTE AUTO 0.2 K/mm3 (0.0-0.4); EOSINOPHILS PERCENT AUTO 2.1 % (0.0-6.0); HEMATOCRIT 37.9 % (37.0-47.0); HEMOGLOBIN 12.8 gm/dl (12.0-16.0); IMMATURE GRAN ABSOLUTE AUTO 0.02 K/mm3 (0.00-0.05); IMMATURE GRAN PERCENT AUTO 0.2 % (0.0-0.4); LYMPHOCYTES ABSOLUTE AUTO 2.2 K/mm3 (1.0-4.8); LYMPHOCYTES PERCENT AUTO 24.7 % (24.0-44.0); MEAN CORPUSCULAR HEMOGLOBIN 27.7 pg (28.0-32.0); MEAN CORPUSCULAR HGB CONC 33.8 g/dl (32.0-36.0); MEAN PLATELET VOLUME 8.5 fl (9.4-12.3); MONOCYTES ABSOLUTE AUTO 0.9 K/mm3 (0.0-0.8); MONOCYTES PERCENT AUTO 10.1 % (0.0-8.0); NEUTROPHILS ABSOLUTE AUTO 5.4 K/mm3 (1.8-7.7); NEUTROPHILS PERCENT AUTO 62.6 % (41.0-71.0); PLATELET COUNT,PLT 293 K/mm3 (150-400); RED BLOOD CELL COUNT 4.62 M/mm3 (4.10-5.30)
[2023-11-29 16:03] LABS: A/G RATIO 0.8 (1-2); ALBUMIN 3.3 g/dl (3.4-5.0); ANION GAP 15.3 (5-15); BILIRUBIN TOTAL 0.3 mg/dL (0.2-1.0); BUN/CREATININE RATIO 12.2 (14-18); CALCIUM 9.1 mg/dL (8.5-10.1); CREATININE 0.9 mg/dL (0.55-1.02); EST CRCL DRUG DOSING (CG) 82.99 mL/min; POTASSIUM,K 3.3 mEq/L (3.5-5.1); PROTEIN TOTAL,TP 7.3 g/dl (6.4-8.2)
== END 2023-11-29 16:55 | disposition home or self-care (01) ==
LOC: JD.ED 14:13
DX: J06.9 Acute upper respiratory infection, unspecified (principal); J45.909 Unspecified asthma, uncomplicated; Z79.899 Other long term (current) drug therapy
CPT/HCPCS: 36415; 71045; 71045-26; 80053; 85025; 94640; 99283; 99285; J7620-GY; U0002

== ENCOUNTER 2024-01-01 03:13 | Emergency (ER) | payer BC ==
[2024-01-01] MEDS ORDERED: Sodium Chloride 0.9% 10 ML Syringe FLUSH PRN (03:33)
[2024-01-01 03:48] LABS: BASOPHILS PERCENT AUTO 0.4 % (0.0-1.0); EOSINOPHILS ABSOLUTE AUTO 0.1 K/mm3 (0.0-0.4); EOSINOPHILS PERCENT AUTO 0.7 % (0.0-6.0); HEMOGLOBIN 14.2 gm/dl (12.0-16.0); IMMATURE GRAN ABSOLUTE AUTO 0.04 K/mm3 (0.00-0.05); IMMATURE GRAN PERCENT AUTO 0.4 % (0.0-0.4); LYMPHOCYTES ABSOLUTE AUTO 2.1 K/mm3 (1.0-4.8); LYMPHOCYTES PERCENT AUTO 18.5 % (24.0-44.0); MEAN CORPUSCULAR HGB CONC 33.8 g/dl (32.0-36.0); MEAN CORPUSCULAR VOLUME 82.8 fl (83.0-99.0); MEAN PLATELET VOLUME 8.6 fl (9.4-12.3); MONOCYTES ABSOLUTE AUTO 0.8 K/mm3 (0.0-0.8); MONOCYTES PERCENT AUTO 6.8 % (0.0-8.0); NEUTROPHILS ABSOLUTE AUTO 8.2 K/mm3 (1.8-7.7); NEUTROPHILS PERCENT AUTO 73.2 % (41.0-71.0); PLATELET COUNT,PLT 321 K/mm3 (150-400); RED BLOOD CELL COUNT 5.07 M/mm3 (4.10-5.30); WHITE BLOOD CELL COUNT,WBC 11.17 K/mm3 (3.9-11.3)
[2024-01-01] MEDS ORDERED: Naloxone 0.4 MG/ML SDV IVPUSH PRN (03:51)
[2024-01-01] MEDS: Morphine 4 MG/ML Syringe IVPUSH ONE (04:02)
[2024-01-01] MEDS: Ondansetron 4 MG/2 ML SDV IVPUSH ONE (04:03)
[2024-01-01] MEDS: Sodium Chloride 0.9% 1,000 ML IV ONE (04:03)
[2024-01-01 04:14] LABS: ALBUMIN 3.7 g/dl (3.4-5.0); ANION GAP 15.6 (5-15); BILIRUBIN TOTAL 0.6 mg/dL (0.2-1.0); CALCIUM 9.7 mg/dL (8.5-10.1); EST CRCL DRUG DOSING (CG) 74.69 mL/min; POTASSIUM,K 3.6 mEq/L (3.5-5.1); PROTEIN TOTAL,TP 7.5 g/dl (6.4-8.2)
[2024-01-01] MEDS: Sodium Chloride 0.9% 10 ML Syringe FLUSH ONE (05:07)
[2024-01-01] MEDS: Iopamidol 755 Mg/ML 100 ML Bottle IVPUSH ONE (05:07)
[2024-01-01 05:18] LABS: APPEARANCE,URINE CLEAR (Clear); BILIRUBIN,URINE NEGATIVE (Negative); COLOR,URINE YELLOW (Yellow); GLUCOSE,URINE NEGATIVE (Negative); KETONES,URINE NEGATIVE (Negative); LEUKOCYTE ESTERASE,URINE NEGATIVE (Negative); NITRITE,URINE NEGATIVE (Negative); OCCULT BLOOD,URINE TRACE-INTACT (Negative); PH,URINE 8.5 (5.0-8.0); PROTEIN,URINE NEGATIVE (Negative); UROBILINOGEN,URINE 0.2 (0.2-1.0)
[2024-01-01 05:24] LABS: BACTERIA,URINE FEW /hpf (FEW); MUCUS,URINE NOT SEEN /hpf (FEW); RBC,URINE 0-5 /hpf (0-5); SQUAMOUS EPITHELIAL CELLS,UR 0-5 /hpf (0-5); WBC,URINE 0-5 /hpf (0-5)
== END 2024-01-01 06:03 | disposition home or self-care (01) ==
LOC: JD.ED 03:13
DX: R10.13 Epigastric pain (principal); Z79.899 Other long term (current) drug therapy
CPT/HCPCS: 36415; 74177; 80053; 81001; 83690; 84703; 85025; 96361; 96374; 96375; 99284; J2270; J2405; J3490; J7030; Q9967

== ENCOUNTER → 2024-01-10 | Day surgery (SDC) | payer BC ==
[~2024-01-10] MED LIST: Dexamethasone 4 MG/ML 5 ML MDV ONE; HYDROmorphone 0.5 MG/0.5 ML Syringe IVPUSH PRN; HYDROmorphone 0.5 MG/0.5 ML Syringe ONE; Ketorolac 30 MG/ML SDV ONE; Lactated Ringers 1,000 ML ONE; Lidocaine 1% 5 ML VIAL ONE; Metoclopramide 10 MG/2 ML SDV ONE; Midazolam 1 MG/ML 2 ML SDV ONE; Ondansetron 4 MG/2 ML SDV IVPUSH PRN; Ondansetron 4 MG/2 ML SDV ONE; Propofol 200 MG/20 ML SDV ONE; Rocuronium 50 MG/5 ML Vial ONE; Sodium Chloride 0.9% 10 ML Syringe FLUSH PRN; Sodium Chloride 0.9% 10 ML Syringe FLUSH SCH; Sugammadex Sodium 200 MG/2 ML VIAL IV ONE; ceFAZolin 2 GM Vial ONE; dexmedeTOMIDine HCl 200 MCG/2 ML SDV ONE; fentaNYL 250 MCG/5 ML SDV ONE
[2024-01-10] MEDS: Lactated Ringers 1,000 ML IV SCH (08:10)
[2024-01-10] MEDS: EPINEPHrine 1 MG/ML SDV ONE (08:51)
[2024-01-10] MEDS: Bupivacaine 0.5% 30 ML SDV ONE (08:51)
[2024-01-10] MEDS: fentaNYL 100 MCG/2 ML SDV IVPUSH PRN (09:54)
[2024-01-10] MEDS: oxyCODONE 5 MG Tab PO PRN (11:16)
== END ==
LOC: JD.SDS 07:44
PROVIDERS: ATTEND Surgery
DX: K80.10 Calculus of gallbladder with chronic cholecystitis without obstruction (principal); J45.909 Unspecified asthma, uncomplicated; F32.A Depression, unspecified; F41.9 Anxiety disorder, unspecified; Z79.899 Other long term (current) drug therapy
CPT/HCPCS: 47562; A9270; J0171; J0665; J0690; J1100; J1170; J1885; J2250; J2405; J2704; J2765; J3010; J3490; J7120; 00790